=== PATIENT | male | born 1995 | race Caucasian/White ===

== ENCOUNTER 2016-12-13 15:07 | Inpatient (IN) | payer OTHER ==
[~2016-12-13] VITALS: Ht 188 cm; Wt 83.5 kg
[2016-12-13] MEDS ORDERED: THIAMINE HCL 200 MG/2 ML VIAL IM ONE (15:45)
[2016-12-13] MEDS ORDERED: MAG HYDROX/AL HYDROX/SIMETH 30 ML LIQUID UDC PO PRN (15:45)
[2016-12-13] MEDS ORDERED: METHOCARBAMOL 750 MG TABLET PO PRN (15:45)
[2016-12-13] MEDS ORDERED: ACETAMINOPHEN 325 MG TABLET PO PRN (15:45)
[2016-12-13] MEDS ORDERED: HYDROXYZINE PAMOATE 25 MG CAPSULE PO PRN (15:45)
[2016-12-13] MEDS ORDERED: ONDANSETRON 4 MG/2 ML VIAL IM PRN (15:45)
[2016-12-13] MEDS ORDERED: DICYCLOMINE HCL 20 MG TABLET PO PRN (15:45)
[2016-12-13] MEDS ORDERED: MIRALAX 17 GM POWD.PACK PO PRN (15:45)
[2016-12-13] MEDS ORDERED: LOPERAMIDE HCL 2 MG CAPSULE PO PRN ×2 (15:45)
[2016-12-13] MEDS ORDERED: CLONIDINE HCL 0.1 MG TABLET PO PRN (15:45)
[2016-12-13] MEDS ORDERED: LORAZEPAM 2 MG/1 ML VIAL IM PRN (15:45)
[2016-12-13] MEDS ORDERED: BUPRENORPHINE HCL 2 MG TAB.SUBL SL PRN (15:45)
[2016-12-13] MEDS ORDERED: IBUPROFEN 600 MG TABLET PO PRN (15:45)
[2016-12-13] MEDS ORDERED: LORAZEPAM 1 MG TABLET PO PRN ×2 (15:45)
[2016-12-13 16:00] VITALS: BP 141/87
[2016-12-13] MEDS ORDERED: NAPR220C15 PO (16:14)
[2016-12-13 17:01] LABS: BASOPHILS # (AUTO) 0.1 K/uL (0.0-8.0); BASOPHILS % (AUTO) 0.5 % (0.0-2.0); EOSINOPHILS # (AUTO) 0.1 K/uL (0.0-0.7); EOSINOPHILS % (AUTO) 0.9 % (0.0-7.0); HEMATOCRIT 45.8 % (36.7-47.1); HEMOGLOBIN 15.8 g/dL (12.5-16.3); LYMPHOCYTES # (AUTO) 2.9 K/uL (20.0-40.0); LYMPHOCYTES % (AUTO) 24.8 % (20.5-51.5); MEAN CORPUSCULAR HEMOGLOBIN 29.5 uug (23.8-33.4); MEAN CORPUSCULAR HGB CONC 34 g/dL (32.5-36.3); MEAN CORPUSCULAR VOLUME 85.6 fL (73.0-96.2); NEUTROPHILS # (AUTO) 7.4 K/uL (1.8-8.9); NEUTROPHILS % (AUTO) 64.8 % (38.5-71.5); PLATELET COUNT (AUTO) 259 K/uL (152-348); RED BLOOD CELL COUNT(AUTO) 5.35 MIL/uL (4.06-5.63); RED CELL DISTRIBUTION WIDTH 12.7 % (12.1-16.2); WHITE BLOOD COUNT (AUTO) 11.5 K/uL (3.6-10.2)
[2016-12-13 17:09] LABS: ETHANOL < 3 MG/DL (0-0)
[2016-12-13 17:11] LABS: ALANINE AMINOTRANSFERASE 23 U/L (16-63); ALBUMIN 4.2 g/dL (3.4-5.0); ALKALINE PHOSPHATASE 64 U/L (50-136); AMYLASE 47 U/L (25-115); ASPARTATE AMINOTRANSFERASE 15 U/L (15-37); BILIRUBIN,TOTAL 0.4 mg/dL (0.2-1.0); CALCIUM 8.8 mg/dL (8.5-10.1); CARBON DIOXIDE 27 mmol/L (21-32); CHLORIDE 107 mmol/L (98-107); GFR 93 mL/min (>60); LIPASE 84 U/L (73-393); POTASSIUM 3.6 mmol/L (3.5-5.1); SODIUM SERUM 145 mmol/L (136-145); TOTAL PROTEIN, SERUM 7.7 g/dL (6.4-8.2); UREA NITROGEN, BLOOD 13 mg/dL (7-18)
[2016-12-13 17:17] LABS: GLUCOSE 114 mg/dL (74-106)
[2016-12-13 17:22] LABS: THYROID STIMULATING HORMONE 0.875 mIU/mL (0.358-3.740)
[2016-12-13] MEDS: ONDANSETRON ODT 4 MG TAB.RAPDIS SL PRN (17:52)
[2016-12-13 17:58] LABS: HIV-1 p24 ANTIGEN NON REACTIVE (NONREACTIVE); HIV-1/2 ANTIBODY NON REACTIVE (NONREACTIVE)
[2016-12-13 18:39] LABS: *AMPHETAMINE, URINE POSITIVE (NEGATIVE); *BARBITURATE, URINE NEGATIVE (NEGATIVE); *CANNABINOID, URINE NEGATIVE (NEGATIVE); *COCCAINE, URINE NEGATIVE (NEGATIVE); *OPIATE, URINE POSITIVE (NEGATIVE); *PHENCYCLIDINE SCREEN,URINE NEGATIVE (NEGATIVE)
[2016-12-13 20:00] VITALS: BP 121/77
[2016-12-13] MEDS ORDERED: PROCHLORPERAZINE EDISYLATE 10 MG/2 ML VIAL IM ONE (20:30)
[2016-12-13] MEDS ORDERED: DICYCLOMINE HCL 20 MG/2 ML AMPUL IM ONE (20:30)
[2016-12-14] VITALS: BP 116/74
[2016-12-14 04:00] VITALS: BP 118/61
[2016-12-14 08:00] VITALS: BP 117/67
[2016-12-14] MEDS: THIAMINE HCL 100 MG TABLET PO SCH (08:50)
[2016-12-14] MEDS: MULTIVITAMINS,THERAPEUTIC TABLET PO SCH (08:50)
[2016-12-14] MEDS: BUPRENORPHINE HCL 2 MG TAB.SUBL SL SCH ×3 (08:50→20:31)
[2016-12-14] MEDS: FOLIC ACID 1 MG TABLET PO SCH (08:50)
[2016-12-14] MEDS ORDERED: MULTIVITAMINS,THERAPEUTIC TABLET PO SCH (09:00)
[2016-12-14] MEDS ORDERED: TUBERCULIN,PURIF.PROT.DERIV. 5 TU/0.1 ML TEST ID ONE (09:00)
[2016-12-14 12:00] VITALS: BP 125/73
[2016-12-14 16:00] VITALS: BP 119/64
[2016-12-14 20:00] VITALS: BP 96/64
[2016-12-15] VITALS: BP 120/69
[2016-12-15] MEDS: diphenhydrAMINE 50 MG CAPSULE PO PRN (00:16)
[2016-12-15 08:10] VITALS: BP 117/52
[2016-12-15 08:27] LABS: BASOPHILS % (AUTO) 0.5 % (0.0-2.0); EOSINOPHILS # (AUTO) 0.3 K/uL (0.0-0.7); EOSINOPHILS % (AUTO) 4.1 % (0.0-7.0); HEMATOCRIT 44.8 % (36.7-47.1); HEMOGLOBIN 15.2 g/dL (12.5-16.3); LYMPHOCYTES # (AUTO) 3.4 K/uL (20.0-40.0); LYMPHOCYTES % (AUTO) 44.8 % (20.5-51.5); MEAN CORPUSCULAR HEMOGLOBIN 29.2 uug (23.8-33.4); MEAN CORPUSCULAR HGB CONC 34 g/dL (32.5-36.3); MEAN CORPUSCULAR VOLUME 85.8 fL (73.0-96.2); MONOCYTES # (AUTO) 0.7 K/uL (2.0-10.0); MONOCYTES % (AUTO) 9.8 % (0.0-11.0); NEUTROPHILS # (AUTO) 3.1 K/uL (1.8-8.9); NEUTROPHILS % (AUTO) 40.8 % (38.5-71.5); PLATELET COUNT (AUTO) 212 K/uL (152-348); RED BLOOD CELL COUNT(AUTO) 5.22 MIL/uL (4.06-5.63); RED CELL DISTRIBUTION WIDTH 12.9 % (12.1-16.2)
[2016-12-15 08:28] LABS: WHITE BLOOD COUNT (AUTO) 7.5 K/uL (3.6-10.2)
[2016-12-15] MEDS: MULTIVITAMINS,THERAPEUTIC TABLET PO SCH (08:32)
[2016-12-15] MEDS: THIAMINE HCL 100 MG TABLET PO SCH (08:33)
[2016-12-15] MEDS: FOLIC ACID 1 MG TABLET PO SCH (08:33)
[2016-12-15] MEDS ORDERED: BUPRENORPHINE HCL 2 MG TAB.SUBL SL SCH (09:00)
[2016-12-15 10:10] LABS: CALCIUM 8.6 mg/dL (8.5-10.1); CREATININE 0.9 mg/dL (0.6-1.3); MAGNESIUM 1.8 mg/dL (1.8-2.4); POTASSIUM 4.6 mmol/L (3.5-5.1)
[2016-12-15 12:34] VITALS: BP 117/59
[2016-12-15] MEDS: BUPRENORPHINE HCL 2 MG TAB.SUBL SL SCH ×2 (14:03→20:49)
[2016-12-15 17:34] VITALS: BP 121/58
[2016-12-15 20:00] VITALS: BP 136/78
[2016-12-15] MEDS ORDERED: LORAZEPAM 1 MG TABLET ONE (20:53)
[2016-12-15] MEDS ORDERED: LORAZEPAM 1 MG TABLET PO SCH (21:00)
[2016-12-15] MEDS: MAGNESIUM HYDROXIDE 30 ML LIQUID UDC PO PRN (21:27)
[2016-12-16] VITALS: BP 120/63
[2016-12-16 04:00] VITALS: BP 124/68
[2016-12-16 08:27] VITALS: BP 119/64
[2016-12-16] MEDS: THIAMINE HCL 100 MG TABLET PO SCH (08:55)
[2016-12-16] MEDS: LORAZEPAM 1 MG TABLET PO SCH ×3 (08:55→20:16)
[2016-12-16] MEDS: BUPRENORPHINE HCL 2 MG TAB.SUBL SL SCH ×3 (08:55→20:16)
[2016-12-16] MEDS: MULTIVITAMINS,THERAPEUTIC TABLET PO SCH (08:55)
[2016-12-16] MEDS: FOLIC ACID 1 MG TABLET PO SCH (08:56)
[2016-12-16] MEDS: MAGNESIUM HYDROXIDE 30 ML LIQUID UDC PO PRN (09:00)
[2016-12-16 12:00] VITALS: BP 121/67
[2016-12-16] MEDS: DOCUSATE SODIUM 250 MG CAPSULE PO SCH (15:18)
[2016-12-16 17:45] VITALS: BP 135/68
[2016-12-16 20:00] VITALS: BP 126/76
[2016-12-16] MEDS ORDERED: BISACODYL 10 MG SUPP.RECT RC PRN (21:15)
[2016-12-16] MEDS ORDERED: BISACODYL 5 MG TABLET.DR PO PRN (21:15)
[2016-12-16] MEDS ORDERED: MAGNESIUM CITRATE 296 ML BOTTLE PO PRN (21:15)
[2016-12-17] VITALS: BP 120/82
[2016-12-17] MEDS: diphenhydrAMINE 50 MG CAPSULE PO PRN (01:11)
[2016-12-17 05:06] LABS: HCV AB 0.1 s/co ratio (0.0-0.9); HEPATITIS B CORE AB, IgM Negative (Negative); HEPATITIS B SURFACE AG Negative (Negative)
[2016-12-17 08:00] VITALS: BP 150/84
[2016-12-17] MEDS: MULTIVITAMINS,THERAPEUTIC TABLET PO SCH (08:43)
[2016-12-17] MEDS: THIAMINE HCL 100 MG TABLET PO SCH (08:43)
[2016-12-17] MEDS: FOLIC ACID 1 MG TABLET PO SCH (08:43)
[2016-12-17] MEDS: DOCUSATE SODIUM 250 MG CAPSULE PO SCH (08:43)
[2016-12-17] MEDS ORDERED: BUPRENORPHINE HCL 2 MG TAB.SUBL SL SCH (09:00)
[2016-12-17] MEDS ORDERED: LORAZEPAM 1 MG TABLET PO SCH (09:00)
[2016-12-17 12:00] VITALS: BP 114/60
[2016-12-17] MEDS ORDERED: FLEET ENEMA 133 ML BOTTLE RC PRN (15:30)
[2016-12-17 16:00] VITALS: BP 120/58
[2016-12-17] MEDS: LORAZEPAM 1 MG TABLET PO SCH ×2 (17:12→21:15)
[2016-12-17] MEDS: BUPRENORPHINE HCL 2 MG TAB.SUBL SL SCH ×2 (17:12→21:15)
[2016-12-17 20:00] VITALS: BP 140/78
[2016-12-17] MEDS: DICYCLOMINE HCL 20 MG TABLET PO SCH (21:15)
[2016-12-18] VITALS: BP 96/54
[2016-12-18 08:00] VITALS: BP 128/71
[2016-12-18] MEDS: FOLIC ACID 1 MG TABLET PO SCH (08:35)
[2016-12-18] MEDS: MULTIVITAMINS,THERAPEUTIC TABLET PO SCH (08:35)
[2016-12-18] MEDS: LORAZEPAM 1 MG TABLET PO SCH ×2 (08:36→20:45)
[2016-12-18] MEDS: DOCUSATE SODIUM 250 MG CAPSULE PO SCH (08:36)
[2016-12-18] MEDS: DICYCLOMINE HCL 20 MG TABLET PO SCH ×3 (08:36→20:44)
[2016-12-18] MEDS: THIAMINE HCL 100 MG TABLET PO SCH (08:36)
[2016-12-18] MEDS ORDERED: BUPRENORPHINE HCL 2 MG TAB.SUBL SL SCH (09:00)
[2016-12-18 12:00] VITALS: BP 134/83
[2016-12-18] MEDS: BACLOFEN 10 MG TABLET PO SCH ×2 (15:34→20:45)
[2016-12-18] MEDS: BUPRENORPHINE HCL 2 MG TAB.SUBL SL SCH ×2 (15:35→20:44)
[2016-12-18 16:00] VITALS: BP 125/64
[2016-12-18] MEDS: ONDANSETRON ODT 4 MG TAB.RAPDIS SL PRN (17:22)
[2016-12-18 20:00] VITALS: BP 127/79
[2016-12-19] VITALS: BP 122/82
[2016-12-19 08:00] VITALS: BP 122/62
[2016-12-19] MEDS: DOCUSATE SODIUM 250 MG CAPSULE PO SCH (08:56)
[2016-12-19] MEDS: DICYCLOMINE HCL 20 MG TABLET PO SCH ×3 (08:56→20:14)
[2016-12-19] MEDS: MULTIVITAMINS,THERAPEUTIC TABLET PO SCH (08:56)
[2016-12-19] MEDS: BACLOFEN 10 MG TABLET PO SCH ×3 (08:56→20:14)
[2016-12-19] MEDS: FOLIC ACID 1 MG TABLET PO SCH (08:57)
[2016-12-19] MEDS: THIAMINE HCL 100 MG TABLET PO SCH (08:57)
[2016-12-19] MEDS ORDERED: BUPRENORPHINE HCL 2 MG TAB.SUBL SL SCH (09:00)
[2016-12-19] MEDS ORDERED: LORAZEPAM 1 MG TABLET PO SCH (09:00)
[2016-12-19 12:00] VITALS: BP 124/63
[2016-12-19 16:00] VITALS: BP 119/79
[2016-12-19 17:04] LABS: *AMPHETAMINE, URINE NEGATIVE (NEGATIVE); *BARBITURATE, URINE NEGATIVE (NEGATIVE); *CANNABINOID, URINE NEGATIVE (NEGATIVE); *COCCAINE, URINE NEGATIVE (NEGATIVE); *OPIATE, URINE NEGATIVE (NEGATIVE); *PHENCYCLIDINE SCREEN,URINE NEGATIVE (NEGATIVE)
[2016-12-19 20:00] VITALS: BP 131/61
[2016-12-19] MEDS: diphenhydrAMINE 50 MG CAPSULE PO PRN (20:14)
[2016-12-20] VITALS: BP 120/71
[2016-12-20] MEDS ORDERED: Ibuprofen PO (00:09)
[2016-12-20] MEDS ORDERED: DIPH50CA37 PO (00:09)
[2016-12-20] MEDS ORDERED: DICY20TA28 PO (00:09)
[2016-12-20] MEDS ORDERED: Baclofen PO (00:09)
[2016-12-20] MEDS ORDERED: Docusate Sodium PO (00:09)
[2016-12-20] MEDS ORDERED: HYDR-3895 PO (00:09)
[2016-12-20 04:00] VITALS: BP 110/63
[2016-12-20 08:00] VITALS: BP 115/64
[2016-12-20] MEDS: DICYCLOMINE HCL 20 MG TABLET PO SCH (08:54)
[2016-12-20] MEDS: DOCUSATE SODIUM 250 MG CAPSULE PO SCH (08:54)
[2016-12-20] MEDS: THIAMINE HCL 100 MG TABLET PO SCH (08:54)
[2016-12-20] MEDS: BACLOFEN 10 MG TABLET PO SCH (08:55)
[2016-12-20] MEDS: FOLIC ACID 1 MG TABLET PO SCH (08:55)
[2016-12-20] MEDS: MULTIVITAMINS,THERAPEUTIC TABLET PO SCH (08:55)
[2016-12-20 13:25] LABS: *AMPHETAMINE Positive (.); *CODEINE Positive (.); *HYDROMORPHONE Negative (Cutoff=300); *METHAMPHETAMINE Positive (.); *OPIATES Positive ng/mL (Cutoff=300)
== END 2016-12-20 10:04 | disposition other institution (70) | DRG 895 ==
LOC: SRC 15:07
PROVIDERS: ADMIT Internal Medicine; ATTEND Internal Medicine
PROC: HZ2ZZZZ Detoxification Services for Substance Abuse Treatment (ICD-10-PCS; principal; 2016-12-13)
PROC: HZ31ZZZ Individual Counseling for Substance Abuse Treatment, Behavioral (ICD-10-PCS; 2016-12-14)
PROC: HZ41ZZZ Group Counseling for Substance Abuse Treatment, Behavioral (ICD-10-PCS; 2016-12-16)
DX: F10.20 Alcohol dependence, uncomplicated (principal); F11.23 Opioid dependence with withdrawal; Y90.9 Presence of alcohol in blood, level not specified; F41.1 Generalized anxiety disorder; Z72.0 Tobacco use; Z81.8 Family history of other mental and behavioral disorders; Z82.49 Family history of ischemic heart disease and other diseases of the circulatory system; Z59.0 Homelessness; F40.01 Agoraphobia with panic disorder; F90.9 Attention-deficit hyperactivity disorder, unspecified type; F15.10 Other stimulant abuse, uncomplicated; D72.823 Leukemoid reaction; K59.03 Drug induced constipation
CPT/HCPCS: 36415; 70030-TC; 80307; 80324; 80361; 83690; 83735; 84443; 85025; 86580; 86592; 86705; 86803; 87340; 87806; G6040-TC; J0500; J0780; Q0162; Q0163

== ENCOUNTER 2018-04-16 13:07 | Inpatient (IN) | payer OTHER ==
[~2018-04-16] VITALS: Ht 188 cm; Wt 88.9 kg
[~2018-04-16 13:07] MED LIST: Baclofen PO; DICY20TA28 PO; DIPH50CA37 PO; Docusate Sodium PO; HYDR-3895 PO; Ibuprofen PO; NAPR220C15 PO
--- NOTE | 2018-04-16 15:48 | NUR ---
pre-assessment note: pt was seen in intake office moderately intoxicated. pt verbalizes he was using heroin before, but is now here for DXM and Etoh. pt is the main source of information, at this time pt is alert, oriented, explained protocols and procedures and pt verbalized understanding.
[2018-04-16] MEDS ORDERED: LOPERAMIDE HCL 2 MG CAPSULE PO PRN ×2 (16:30)
[2018-04-16] MEDS ORDERED: diphenhydrAMINE 50 MG CAPSULE PO PRN ×2 (16:30→22:30)
[2018-04-16] MEDS ORDERED: DICYCLOMINE HCL 20 MG TABLET PO PRN ×2 (16:30→22:30)
[2018-04-16] MEDS ORDERED: CLONIDINE HCL 0.1 MG TABLET PO PRN (16:30)
[2018-04-16] MEDS ORDERED: LORAZEPAM 2 MG/1 ML VIAL IM PRN (16:30)
[2018-04-16] MEDS ORDERED: MIRALAX 17 GM POWD.PACK PO PRN (16:30)
[2018-04-16] MEDS ORDERED: ONDANSETRON 4 MG/2 ML VIAL IM PRN (16:30)
[2018-04-16] MEDS ORDERED: LORAZEPAM 1 MG TABLET PO PRN (16:30)
[2018-04-16] MEDS ORDERED: MAGNESIUM HYDROXIDE 30 ML LIQUID UDC PO PRN (16:30)
[2018-04-16] MEDS ORDERED: THIAMINE HCL 200 MG/2 ML VIAL IM ONE (16:30)
[2018-04-16 16:35] LABS: BASOPHILS % (AUTO) 0.5 % (0.0-2.0); EOSINOPHILS % (AUTO) 0.3 % (0.0-7.0); HEMATOCRIT 51.6 % (36.7-47.1); HEMOGLOBIN 17.5 g/dL (12.5-16.3); LYMPHOCYTES # (AUTO) 2.7 K/uL (20.0-40.0); LYMPHOCYTES % (AUTO) 30.1 % (20.5-51.5); MEAN CORPUSCULAR HEMOGLOBIN 29.9 uug (23.8-33.4); MEAN CORPUSCULAR HGB CONC 34 g/dL (32.5-36.3); MEAN CORPUSCULAR VOLUME 88.5 fL (73.0-96.2); MONOCYTES # (AUTO) 0.8 K/uL (2.0-10.0); MONOCYTES % (AUTO) 9.4 % (0.0-11.0); NEUTROPHILS # (AUTO) 5.3 K/uL (1.8-8.9); NEUTROPHILS % (AUTO) 59.7 % (38.5-71.5); PLATELET COUNT (AUTO) 327 K/uL (152-348); RED BLOOD CELL COUNT(AUTO) 5.83 MIL/uL (4.06-5.63); WHITE BLOOD COUNT (AUTO) 8.9 K/uL (3.6-10.2)
[2018-04-16 16:39] LABS: ETHANOL < 3 MG/DL (0-0)
[2018-04-16 16:42] LABS: ALANINE AMINOTRANSFERASE 34 U/L (16-63); ALKALINE PHOSPHATASE 75 U/L (50-136); AMYLASE 51 U/L (25-115); ASPARTATE AMINOTRANSFERASE 18 U/L (15-37); BILIRUBIN,TOTAL 0.6 mg/dL (0.2-1.0); CARBON DIOXIDE 23 mmol/L (21-32); CHLORIDE 104 mmol/L (98-107); CREATININE 1.1 mg/dL (0.6-1.3); GLUCOSE 145 mg/dL (74-106); LIPASE 112 U/L (73-393); MAGNESIUM 2.2 mg/dL (1.8-2.4); POTASSIUM 3.2 mmol/L (3.5-5.1); TOTAL PROTEIN, SERUM 8.6 g/dL (6.4-8.2); UREA NITROGEN, BLOOD 9 mg/dL (7-18)
[2018-04-16] MEDS ORDERED: POTASSIUM CHLORIDE 20 MEQ TAB.PRT.SR PO ONE (17:00)
[2018-04-16] MEDS: ONDANSETRON ODT 4 MG TAB.RAPDIS SL PRN (17:40)
--- NOTE | 2018-04-16 17:40 | NUR ---
LAB K+=3.2. aware with new order for Kdur 40 mEq po x 1 dose noted and carried out.
--- NOTE | 2018-04-16 17:46 | NUR ---
PRN ZOFRAN Complaints of nausea with no vomit episode. Zofran odt prn per MD order given and tolerated well.
--- NOTE | 2018-04-16 18:00 | NUR ---
ADMISSION Pt 27 y/o male came from home admitted for etoh, dxm , and heroin withdrawal and methamphetamine. Appears disheveled. Dirty shirt. Dirt under fingernails of both hands. Tapping foot during assessment. Restless, not able to sit still. Pressured speech. Poor eye contact. Not intoxicated. Alert and oriented to name, place, and time. Perrla. Skin warm and moist to touch. Lung sounds clear bilaterally. Bilateral hand tremors. Complaints of nausea and perspiration. T=98.0 P=80 R= 16 O2=97% XY=060/84. Pt states he normally experiences, shakes, nausea, vomit, perspiration, and headaches, when not drinking alcohol. States has attempted multiple times at sobriety, but was not successful at maintaining sobriety after treatment. Pt states he drinks alcohol because it takes away anxiety, lets him be more sociable, and more confident of himself. Pt states he has social anxiety. Has been drinking alcohol for 11 years and it has been difficult to stop since when he first started drinking alcohol. States the drinking has damaged his relationship with friends, as well as got him fired from multiple jobs ( showing up late and at times showing up intoxicated). States the reason for his multiple failed attempts at sobriety was my own self will. Im wasnt ready at the time. States he is unhappy with his life because of the alcohol. Pt said, Im sick of this lifestyle and Ill do whatever it takes to maintain sobriety. Pt states his longest period of sobriety was 6 months from August 2016-January2017. PCP is Dr. Andujar. Pt denies any SI/HI. Also denies ever being on a 5150. Pt states has experienced a blackout a few days ago. Stated was drinking 1500mL of red wine and 325mL of vodka. Only remembers drinking at home and ending up in room. Pt stated that his girlfriend and him had a big argument, but pt does not recall any of it. Depression(unsure of dx date) and is take paxil 40mg po but stopped taking the medication 2 days ago. Anxiety (2009) Substance hx: ETOH ( red wine). States drinks 1500mL daily for 3 months. Last drink was on 750 mL on 04/16/18 @ 0700. Has been drinking for a total of 11 years. Cough syrup DXM. Either liquid or pills 1gm 2 days a week. Last time pt took was on 04/15/18 1gm. Has been using for 8 years. Heroin smoke 1-2 gm binge once every few weeks. Last used 1-2gm on 04/13/18. Hast been using for 6 years. Methamphetamine smoke 1-2 gm binge once every few weeks. Last used 1-2gm on 03/16/18. Has been using for 4 years. Treatment hx: [facility] from November 2017- December 2017. Was able to maintain sobriety for 2 weeks after DC. [facility] from June 2017-September 2017. Was able to maintain sobriety for 2 weeks after DC. [facility] from November 2016 for 1 month and was able to maintain sobriety for 6 months. Addendum: 04/16/18 at 1916 by ALVARADO BARRERA RN additional Initial ciwa=8 Addendum: 04/17/18 at 0740 by ALVARADO BARRERA RN additional information DXM last used in the morning of 04/15/18 heroin last used in the afternoon on 04/13/18 methamphetamine last used in the morning on 04/16/18 Addendum: 04/17/18 at 1015 by ALVARADO BARRERA RN correction Pt states his longest period of sobriety was 6 months from May 2016-November 2016. Pt also denies use of PCP.
--- NOTE | 2018-04-16 18:46 | NUR ---
PRN ZOFRAN EVAL Pt denies any nausea at this time.
[2018-04-16 19:17] LABS: *AMPHETAMINE, URINE NEGATIVE (NEGATIVE); *BARBITURATE, URINE NEGATIVE (NEGATIVE); *CANNABINOID, URINE NEGATIVE (NEGATIVE); *COCCAINE, URINE NEGATIVE (NEGATIVE); *OPIATE, URINE POSITIVE (NEGATIVE); *PHENCYCLIDINE SCREEN,URINE POSITIVE (NEGATIVE)
[2018-04-16] MEDS: LORAZEPAM 1 MG TABLET PO PRN (19:25)
--- NOTE | 2018-04-16 19:26 | NUR ---
PRN ATIVAN ciwa=8. Nausea. Bilateral hand tremors. Skin moist to touch. Anxious and restless. Irritable. Pressured speech. Ativan 1mg po prn per MD order given and tolerated well.
--- NOTE | 2018-04-16 19:27 | NUR ---
Start of shift note Received report from day shift nurse. Pt is a 23 yo male, A+Ox4, presenting to [facility] for medically supervised ETOH/Opiate withdrawal. Pt was also using Methamphetamine. Pt noted to be restless, agitated, and anxious. Pt has HX anxiety and depression which will be monitored during shift. Pt is on PRN Ativan until further evaluation from MD, tolerated well. Respirations even and unlabored. Will continue to monitor.
[2018-04-16 20:25] VITALS: BP 134/78
--- NOTE | 2018-04-16 20:25 | NUR ---
PRN Ativan 1mg Reassessment and CIWA Assessment Medication effective. Pt expresses reduction of anxiety. No s/s of ASE noted at this time. CIWA: 6. Pt noted with fine tremors, sweat on brow, anxiety, and agitation. Respirations even and unlabored. Will continue to monitor.
[2018-04-16] MEDS ORDERED: DOCUSATE SODIUM 250 MG CAPSULE PO PRN (22:30)
[2018-04-16] MEDS ORDERED: HYDROXYZINE PAMOATE 25 MG CAPSULE PO PRN (22:30)
--- NOTE | 2018-04-17 00:57 | NUR ---
V/S refused and CIWA assessment deferred for sleep. Respirations even and unlabored. Will continue to monitor.
--- NOTE | 2018-04-17 04:48 | NUR ---
V/S refused and CIWA assessment deferred for sleep. Respirations even and unlabored. Will continue to monitor.
--- NOTE | 2018-04-17 07:00 | NUR ---
End of shift note Pt was continuously noted with anxiety and agitation. Pt remained in room for entire shift. Pt remained cooperative and compliant with all aspects of treatment. Pt was not given any PRN medications during shift. Pt is on PRN medications until further review from MD. Pt slept for a total of 10 HRS. Last CIWA: 6 @2024. Respirations even and unlabored. Will endorse to day shift nurse.
--- NOTE | 2018-04-17 07:30 | NUR ---
START OF SHIFT Pt 23 y/o male admitted for etoh, DXM, and heroin withdrawal and methamphetamine. Received in room on bed awake watching television. Alert and oriented to name, place, and time. Perrla. Skin warm and moist to touch. Respirations even and unlabored. Bilateral hand tremors. Appears disheveled and unkempt. Empty drink bottles scattered throughout the room. Anxious and restless. Pressured speech. Irritable. Generalized discomfort. Encouraged to maintain hygiene. It was reported that pt slept for 10 hours last night. Pt is on prn ativan. Last ciwa=6 @2029 last night. Bed on lowest position with side rails x2 up for safety. Call light within reach.
[2018-04-17] MEDS ORDERED: GABA600T2 PO (07:58)
[2018-04-17] MEDS ORDERED: PARO25TA16 PO (07:59)
[2018-04-17 08:00] VITALS: BP 145/89
--- NOTE | 2018-04-17 08:30 | NUR ---
CIWA ASSESSMENT ciwa=10. Restless and anxious. Irritable. Pressured speech. Nausea. Headache 01/01. Fidgety. Intermittent perspiration. Generalized discomfort. States," I just feel really anxious right now.".
[2018-04-17] MEDS: FOLIC ACID 1 MG TABLET PO SCH (08:33)
[2018-04-17] MEDS: MULTIVITAMINS,THERAPEUTIC TABLET PO SCH (08:33)
[2018-04-17] MEDS: THIAMINE HCL 100 MG TABLET PO SCH (08:33)
[2018-04-17] MEDS: ONDANSETRON ODT 4 MG TAB.RAPDIS SL PRN (08:34)
[2018-04-17] MEDS: LORAZEPAM 1 MG TABLET PO PRN (08:34)
[2018-04-17] MEDS: IBUPROFEN 600 MG TABLET PO PRN (08:34)
--- NOTE | 2018-04-17 08:42 | NUR ---
PRN ATIVAN ZOFRAN IBUPROFEN ciwa=10. Restless and anxious. Fidgety. Nausea. Bilateral hand tremors. Headache 6/10. Generalized discomfort. Ativan 1mg po prn per MD order given and tolerated well. Zofran odt prn per MD order and ibuprofen po prn per MD order given.
[2018-04-17] MEDS ORDERED: TUBERCULIN,PURIF.PROT.DERIV. 5 TU/0.1 ML TEST ID ONE (09:00)
--- NOTE | 2018-04-17 09:42 | NUR ---
PRN ATIVAN ZOFRAN IBUPROFEN EVAL ciwa=8. Bilateral hand tremors. Anxious and restless. Irritable. Complaints of perspiration. Pt denies any nausea. Pt states headache 3/10.
[2018-04-17] MEDS ORDERED: 5 DAY TAPER OF LORAZEPAM -SERENITY PROTOCOL PO PRN (10:30)
[2018-04-17 12:00] VITALS: BP 143/63
--- NOTE | 2018-04-17 12:00 | NUR ---
CIWA ASSESSMENT ciwa=10. Bilateral hand tremors noted. Anxious and restless. Not able to lay still in bed. States, " I feel very anxious.". Pressured speech. Generalized discomfort. Complaints of headaches. Nausea.
[2018-04-17] MEDS: LORAZEPAM 1 MG TABLET PO SCH ×3 (12:11→20:31)
[2018-04-17 16:00] VITALS: BP 112/73
--- NOTE | 2018-04-17 16:00 | NUR ---
CIWA ASSESSMENT ciwa=10. Laying in bed. Fatigued. Pt states, " I feel anxious". Bilateral hand tremors noted. Skin moist to touch. Fidgety. Irritable. Anxious. Intermittent nausea. Low motivation for self care. Malodorous. Encouraged to maintain hygiene.
[2018-04-17] MEDS: PAROXETINE HCL 20 MG TABLET PO SCH (16:12)
[2018-04-17 17:14] LABS: BASOPHILS # (AUTO) 0.1 K/uL (0.0-8.0); BASOPHILS % (AUTO) 0.6 % (0.0-2.0); EOSINOPHILS # (AUTO) 0.2 K/uL (0.0-0.7); EOSINOPHILS % (AUTO) 2.1 % (0.0-7.0); HEMATOCRIT 45.5 % (36.7-47.1); HEMOGLOBIN 15.8 g/dL (12.5-16.3); LYMPHOCYTES % (AUTO) 37.3 % (20.5-51.5); MEAN CORPUSCULAR HEMOGLOBIN 30.7 uug (23.8-33.4); MEAN CORPUSCULAR HGB CONC 35 g/dL (32.5-36.3); MEAN CORPUSCULAR VOLUME 88.5 fL (73.0-96.2); MONOCYTES # (AUTO) 0.9 K/uL (2.0-10.0); MONOCYTES % (AUTO) 11.9 % (0.0-11.0); NEUTROPHILS # (AUTO) 3.8 K/uL (1.8-8.9); NEUTROPHILS % (AUTO) 48.1 % (38.5-71.5); PLATELET COUNT (AUTO) 271 K/uL (152-348); RED BLOOD CELL COUNT(AUTO) 5.14 MIL/uL (4.06-5.63)
[2018-04-17 17:40] LABS: BILIRUBIN,TOTAL 0.2 mg/dL (0.2-1.0); CREATININE 1.2 mg/dL (0.6-1.3); MAGNESIUM 1.9 mg/dL (1.8-2.4); POTASSIUM 4.1 mmol/L (3.5-5.1)
--- NOTE | 2018-04-17 18:44 | NUR ---
END OF SHIFT Pt 23 y/o male admitted for etoh, DXM, and heroin withdrawal and methamphetamine. Alert and oriented to name, place, and time. Perrla. Skin warm and moist to touch. Respirations even and unlabored. Bilateral hand tremors noted. Disheveled and unkempt. Malodorous. Empty drink bottles scattered throughout the room. Dirt under finger nails noted. Anxious and restless. Intermittent perspirations. Generalized discomfort. Pt states, " I feel anxious" this afternoon. Encouraged to maintain hygiene. Low motivation for self care. Isolative to room with no peer interaction. Did not attend group activity. Last ciwa=10@1600. Pt is on a 3 day ativan taper and is on day 1. Pt was given zofran odt prn per MD order for nausea this morning. Pt also received ibuprofen po prn per MD order for a headache this morning. Bed on lowest position with side rails x2 up for safety. Call light within reach.
--- NOTE | 2018-04-17 19:10 | NUR ---
Start of shift Received report from day shift nurse. Pt is a 23 yo male, A+Ox4, presenting to [facility] for medically supervised ETOH/Opiate withdrawal. Pt noted to be restless, agitated, and anxious. Pt has HX of anxiety and depression which will be monitored during shift. Pt is on 3 day Ativan taper, tolerated well. Respirations even and unlabored. Will continue to monitor.
--- NOTE | 2018-04-17 20:10 | NUR ---
CIWA Assessment CIWA: 10. Pt noted with fine tremors, sweat on brow, anxiety, agitation, and mild headache. Respirations even and unlabored. Will continue to monitor.
[2018-04-17 20:16] VITALS: BP 141/77
--- NOTE | 2018-04-18 00:55 | NUR ---
V/S refused and CIWA assessment deferred for sleep. Respirations even and unlabored. Will continue to monitor.
--- NOTE | 2018-04-18 04:49 | NUR ---
V/S refused and CIWA assessment deferred for sleep. Respirations even and unlabored. Will continue to monitor.
--- NOTE | 2018-04-18 07:00 | NUR ---
End of shift note Pt was continuously noted with restlessness, anxiety, and agitation. Pt remained in room for entire shift. Pt remained cooperative and compliant with all aspects of treatment. Pt was not given any PRN medications during shift. Pt is on 3 day Ativan taper, tolerated well. Pt slept for a total of 10 HRS. Last CIWA: 10 @2017. Respirations even and unlabored. Will endorse to day shift nurse.
--- NOTE | 2018-04-18 07:23 | NUR ---
START OF SHIFT Pt 23 y/o male admitted for etoh, DXM, and heroin withdrawal and methamphetamine. Received in room on bed with eyes closed resting, but easily arousable to name. Alert and oriented to name, place, and time. Perrla. Skin warm and moist to touch. Respirations even and unlabored. Bilateral hand tremors noted. Appears disheveled and malodorous. Anxious and restless. Generalized discomfort. Pressured speech noted. Encouraged to maintain hygiene. It was reported that pt slept for 10 hours last night. Last cwia =10@2000. Pt is on a 3 day ativan taper and is on day 2. Bed on lowest position with side rails x2 up for safety. Call light within reach.
[2018-04-18 08:00] VITALS: BP 148/80
--- NOTE | 2018-04-18 08:00 | NUR ---
CIWA ASSESSMENT ciwa=10. Anxious and restless. Pressured speech noted. Bilateral hand tremors. Complaints of intermittent perspiration. Pt states, " I feel anxious". Generalized discomfort. Intermittent nausea.
[2018-04-18 08:08] LABS: HEPATITIS B SURFACE AG Negative (Negative)
[2018-04-18] MEDS: LORAZEPAM 1 MG TABLET PO SCH ×3 (08:15→20:20)
[2018-04-18] MEDS: THIAMINE HCL 100 MG TABLET PO SCH (08:15)
[2018-04-18] MEDS: FOLIC ACID 1 MG TABLET PO SCH (08:15)
[2018-04-18] MEDS: MULTIVITAMINS,THERAPEUTIC TABLET PO SCH (08:15)
[2018-04-18] MEDS: PAROXETINE HCL 20 MG TABLET PO SCH (08:16)
--- NOTE | 2018-04-18 12:00 | NUR ---
CIWA ASSESSMENT ciwa=10. Bilateral hand tremors. Anxious and restless. Fidgety. Not able to lay still in bed. Irritable. Intermittent nausea and perspiration. Generalized discomfort.
[2018-04-18 12:03] VITALS: BP 142/69
--- NOTE | 2018-04-18 12:24 | NUR ---
Therapist prompted client to attend group therapy.
--- NOTE | 2018-04-18 16:07 | NUR ---
CIWA ASSESSMENT ciwa=10. Bilateral hand tremors. Anxious and restless. Fidgety. Complaints of generalized discomfort. Irritable. Disheveled and unkempt. Pressured speech noted.
[2018-04-18 16:45] VITALS: BP 142/81
--- NOTE | 2018-04-18 17:11 | NUR ---
ENDORSEMENT Endorsed pt to nurse. All information given.
--- NOTE | 2018-04-18 19:02 | NUR ---
End of Shift Note Pt 23 y/o male admitted for ETOH, dx, and heroin withdrawal and methamphetamine. Alert and oriented to name, place, and time. Perrla. Skin warm and moist to touch. Respirations even and unlabored. Appears disheveled and unkempt. Malodorous. Hair uncombed. Anxious and restless. Dirt under fingernails of both hands noted. Bilateral hand tremors noted. Some intermittent nausea. Generalized discomfort. Low motivation for self care. Encouraged shower and to maintain hygiene. Did not attend group activity today. Isolative to room the whole day. Pt is on a 3 day ativan taper and is on day 2. Last ciwa= 10@1600. Bed on lowest position with side rails x2 up for safety. Call light within reach.
--- NOTE | 2018-04-18 19:49 | NUR ---
START OF SHIFT Patient is a 23 y.o male admitted on 04/16/18 for ETOH withdrawal. Received patient from day shift, previous CIWA reported as 10. Patient is currently in bed, eyes closed but responsive to verbal stimuli. VS 132/66, pulse 69, resp 12, SpO2 96% on room air, temp 98.3. Patients room is dark, malodorous and patient covered himself from his neck down with a blanket, patient is disheveled. Patient reports that he did not attend any groups today, patient is isolative. Patient has a flat affect. Patient denies pain at this time but reports feeling sweaty, having tremors, and anxiety. Patient was encouraged to consume adequate amount of fluids. Patient did report that he had a regular BM today x1. Respirations even and non-labored, call light within reach. Safety measures in place. Will continue to monitor.
[2018-04-18 20:00] VITALS: BP 132/66
--- NOTE | 2018-04-18 20:00 | NUR ---
[facility] ASSESSMENT [facility] 14. Nausea reported with no vomiting, tremors present to bilateral arms when extended. Patient complains of feeling sweaty. Patient is anxious and agitated when asked about how he is feeling. Patient has poor eye contact, abruptly ends conversation. Addendum: 04/19/18 at 0017 by SUGEY DE LA PAZ RN Pt declined needing a PRN for nausea.
[2018-04-19] VITALS: BP 133/74
--- NOTE | 2018-04-19 00:16 | NUR ---
CIWA ASSESSMENT CIWA 7. Patient is in bed with his eyes closed, responds to verbal stimuli. Patient skin is clammy to the touch. Pt is agitated, continuously repositions self in bed. Patient has his television set on loud. Patient denies needing anything at this time.
--- NOTE | 2018-04-19 04:00 | NUR ---
0400 CIWA/VS Patient in bed with his eyes closed. CIWA and VS deferred due to patient resting. Will continue to monitor.
--- NOTE | 2018-04-19 07:02 | NUR ---
END OF SHIFT NOTE Patient is a 23 y.o male admitted for ETOH and opiate withdrawal. Patient did not participate in evening activities, patient is socially withdrawn. Patient easily agitated when woken up by staff, poor eye contact and lack of detail in answering questions. Patient had his television set on a loud volume up until 1am. Patient was noted to toss and turn in bed throughout the night during rounds. Pt was informed numerous times to call for nurse if needed. Patient keeps empty/used refreshment bottles in room, room untidy. Patient did not leave room during the shift, continued to lay in bed and remained isolative. Patient needed numerous redirection during VS and CIWA assessment due to patient not cooperating initially. Patient states I just want to sleep. Patient disheveled, unkempt, and room is malodorous (sweat). Patient slept for 10 hours. Resp. are even and non labored. Call light within reach. Patient is on a 3 day Ativan taper. Last CIWA 7. No PRNs administered during this shift. Endorsing to day shift nurse. At 0702 Pt laying in bed with eyes open, watching TV.
--- NOTE | 2018-04-19 07:50 | NUR ---
START OF SHIFT Endorse rcvd from ongoing nurse, client is is room, sound asleep, easy to arouse, RR 16, [id number]. Last CIWA 7 @ 2400. Client had an uneventful night. Client slept 10 hrs. Seizure precautions. Bed in lowest/locked position. Side rails x 2 up/padded. Call light within reach.
[2018-04-19 08:21] VITALS: BP 134/71
[2018-04-19] MEDS: THIAMINE HCL 100 MG TABLET PO SCH (08:31)
[2018-04-19] MEDS: PAROXETINE HCL 20 MG TABLET PO SCH (08:31)
[2018-04-19] MEDS: IBUPROFEN 600 MG TABLET PO PRN (08:31)
[2018-04-19] MEDS: LORAZEPAM 1 MG TABLET PO SCH ×2 (08:31→20:30)
[2018-04-19] MEDS: FOLIC ACID 1 MG TABLET PO SCH (08:31)
[2018-04-19] MEDS: MULTIVITAMINS,THERAPEUTIC TABLET PO SCH (08:31)
--- NOTE | 2018-04-19 08:31 | NUR ---
CIWA 16 Client is in bed, he appears disheveled, odorous, unshaven, dark circles under eyes, he presents with anxiety, agitation, irritability, flushed face, clammy skin, and tremors noted. Client reports nausea, stomach cramps, sweats, chills, insomnia, and difficulty concentrating. Ativan 1mg PO administered. Encourage client to increase ADL as tolerated and to attend group therapy to learn skills to maintain sober. Call light within reach.
--- NOTE | 2018-04-19 08:35 | NUR ---
Zero induration noted on R forearm PPD site.
--- NOTE | 2018-04-19 12:30 | NUR ---
CIWA 14 Client presents with flushed face skin, antsy and fidgety stating he has increased anxiety, stomach cramps, depressive mood, agitation, restlessness, tremors, increased emotional amplitude, diaphoresis, and fatigue. Encouraged client to attend groups and share his feelings. Safety measures in place. Will continue to monitor.
[2018-04-19 12:52] VITALS: BP 139/79
--- NOTE | 2018-04-19 13:47 | NUR ---
Prompted client to attend groups offered twice daily.
--- NOTE | 2018-04-19 16:30 | NUR ---
CIWA 14 Client continues to present with flushed face skin, fidgety, anxiety, stomach cramps, depressive mood, agitation, restlessness, tremors, increased emotional amplitude, diaphoresis, and fatigue. Encouraged client to attend groups and share his feelings. Safety measures in place. Will continue to monitor.
[2018-04-19 17:20] VITALS: BP 122/76
--- NOTE | 2018-04-19 18:52 | NUR ---
START OF SHIFT NOTE: This is report on patient, an 23 year old male, continues ordered 3 day Ativan (today is day #3) , ordered for Alcohol withdrawal. Patient is alert and oriented x4, ambulatory with steady gait, soft clear speech. He appears sad, worried, with poor eye contact, and easily distracted, anxious mood, and flat affect. Encourage to express his feelings, and reassuring provided. The patient noted disheveled, unshaven, with uncombed hair. Throughout the day shift patient presented with moderate withdrawal symptoms such as anxiety, agitation, depression, irritability, nervousness, nasal congestion, nausea, stomach cramps, sweating, flushed face, restlessness, tremors, fatigue, and yawning. The most recent CIWA=14 at 1600. Patient is isolate himself from any activities, per day shift nurse report. Encouraged to attend group activities. Encouraged to intake fluids as tolerated. All needs met. Safety measures: Call light within reach, bed locked in lowest position, padded bed rails up x2. Endorsed by shift nurse. Will continue to monitor closely.
--- NOTE | 2018-04-19 19:14 | NUR ---
END OF SHIFT Endorse client to incoming nurse, client tends to isolate in his room, a/o x 4. Client monitored closely during shift, continues on Ativan taper as ordered. During shift client presented with nausea, anxiety, agitation, poor appetite, stomach cramps, difficulty concentrating, avoidant gaze, and fatigue. Client's last CIWA 14 @ 1600. Adequate PO fluid intake 1500mL, void x 5. Consumes 50-75% of meals. Call light within reach.
--- NOTE | 2018-04-19 20:00 | NUR ---
CIWA ASSESSMENT CIWA=12 at 2000. The patient appears sad, worried, with anxious mood and flat affect. Patient experienced following withdrawal symptoms such as anxiety, agitation, Irritability, nervousness, sweating, tremors, stomach cramps, restlessness, fatigue, and yawning. Ativan PO will be administrated as ordered. Encouraged to intake fluids as tolerated. Safe and calm environment provided. Encouraged to intake fluids as tolerated. All needs met. Safety measures: Call light within reach, bed locked in lowest position, padded bed rails up x2. Will continue to monitor closely.
--- NOTE | 2018-04-20 | NUR ---
VS REFUSED, CIWA DEFERRED VS refused,CIWA deferred at 0000 r/t patient sleeping. Will be to assess while patient is awake. Safe and calm environment provided. All needs met. Safety measures: Call light within reach, bed locked in lowest position, padded bed rails up x2. Will continue to monitor closely.
[2018-04-20 04:00] VITALS: BP 140/84
--- NOTE | 2018-04-20 04:00 | NUR ---
CIWA ASSESSMENT CIWA=11 at 0400. The patient appears worried, anxious mood and flat affect. Patient experienced anxiety, agitation, irritability, nervousness, sweating, tremors, restlessness, and fatigue. Encouraged to intake fluids as tolerated. Safe and calm environment provided. Encouraged to intake fluids as tolerated. All needs met. Safety measures: Call light within reach, bed locked in lowest position, padded bed rails up x2. Will continue to monitor closely.
--- NOTE | 2018-04-20 07:31 | NUR ---
END OF SHIFT NOTE: Presented patient, an 23 year old male, admitted for Alcohol withdrawal, completed ordered 3 day Ativan, which tolerated well. Patient is alert and oriented x4, cooperative, with soft clear speech, verbally appropriate. He is ambulatory with steady gait. Patient appears worried, with poor eye contact. The patient noted disheveled, unshaven, unkempt with uncombed hair. Mood anxious, flat affect. CIWA=12 at 2000. CIWA=11 at 0400. The patient appears worried, anxious mood and flat affect. Patient experienced anxiety, agitation, irritability, nervousness, flushed face, clammy skin, sweating, tremors, restlessness, and fatigue. Encouraged to attend group activities. Encouraged to intake fluids as tolerated. Patient slept for 11 hours, intake 736 ml, output: voided x1. Safe and calm environment provided. All needs met. Safety measures: Call light within reach, bed locked in lowest position, padded bed rails up x2. Endorsed to day shift nurse.
--- NOTE | 2018-04-20 07:40 | NUR ---
START OF SHIFT Received report from caustic cresylate shift superintendent nurse. Pt is in his room requesting to shower. He is a 23 yo male admitted to [facility] on 04/16 for ETOH and Opiate withdrawal with a h/o and meth. His affect is flat and appearance is disheveled. His room is odorous with clothes not put away and empty food wrappers and liquid bottles around the bedside. He states "I've just been sleeping a lot. How soon can I get my meds?". His skin is moist and he reports feeling anxious. 3 day Valium taper ended yesterday. Respirations even and unlabored. Last CIWA was 11 on caustic cresylate shift superintendent. Safety measures in place.
[2018-04-20 08:00] VITALS: BP 136/79
--- NOTE | 2018-04-20 08:50 | NUR ---
CIWA Assessment Pt has been somnolent. He has a flat affect and depressed mood. He is observed with tremors and reports a feeling of fullness in the head, sweating while sleeping, mild nausea, and anxiety. CIWA score 9.
[2018-04-20] MEDS: THIAMINE HCL 100 MG TABLET PO SCH (08:52)
[2018-04-20] MEDS: FOLIC ACID 1 MG TABLET PO SCH (08:52)
[2018-04-20] MEDS: PAROXETINE HCL 20 MG TABLET PO SCH (08:53)
[2018-04-20] MEDS: MULTIVITAMINS,THERAPEUTIC TABLET PO SCH (08:53)
--- NOTE | 2018-04-20 08:55 | NUR ---
PRN Vistaril Pt reports moderate anxiety. Encouraged deep breathing and relaxation. PRN Vistaril administered.
--- NOTE | 2018-04-20 09:55 | NUR ---
PRN Vistaril reassessment PRN Vistaril effective. Pt reports feeling more relaxed. He is resting in bed watching TV.
[2018-04-20 12:30] VITALS: BP 110/72
--- NOTE | 2018-04-20 12:40 | NUR ---
[facility] assessment Pt is in his room having lunch. He presents with a flat affect and depressed mood. He has mild hand tremors, moist skin, and reports anxiety. B/P is 153/89.
--- NOTE | 2018-04-20 12:41 | NUR ---
PRN Clonidine Pt reports feeling anxious with B/P 153/89. PRN Clonidine administered.
--- NOTE | 2018-04-20 14:00 | NUR ---
PRN Clonidine reassessment PRN Clonidine effective. Pt is lying in bed resting with eyes closed. Respirations even and unlabored. Safety measures in place.
[2018-04-20] MEDS ORDERED: PARO20TA7 PO (14:44)
[2018-04-20] MEDS ORDERED: MULT-24 PO (14:44)
[2018-04-20] MEDS ORDERED: CLON0.1T14 PO (14:44)
[2018-04-20 16:30] VITALS: BP 107/53
--- NOTE | 2018-04-20 16:30 | NUR ---
CIWA assessment Pt is lying in bed resting. He has mild tremors, mild anxiety, and restless legs. His affect is flat and mood is depressed. His room is odorous. CIWA score 7.
--- NOTE | 2018-04-20 18:52 | NUR ---
START OF SHIFT NOTE: The patient is an 23 year old patient completed 3 day Ativan taper ordered for alcohol withdrawal, which tolerated well. Withdrawal symptoms will be closely monitoring. The patient scheduled for discharging tomorrow, on 04/21/2018 at 0930. Patient appears worried, easy distracted, with anxious mood, and flat affect. Encourage to expressing his feelings, reassurance provided. The patient noted disheveled, unshaven, with uncombed hair. The most recent CIWA=7at 1600. During day shift patient presented with moderate withdrawal symptoms such as anxiety, agitation, depression, irritability, nervousness, sweating, restlessness, tremors, restlessness and fatigue. PRN Vistaril 25 mg PO administrated for anxiety at 0955 and PRN Clonidine PO administrated for BM=274/89 at 1241, and were effective, per day shift nurse report. The patient remains compliant with treatment plan, medications, and diet regime. Encouraged to attend group activities. Encouraged to intake fluids as tolerated. All needs met. Safety measures: Call light within reach, bed locked in lowest position, padded bed rails up x2. Endorsed by outgoing day shift nurse. Will continue to monitor closely.
--- NOTE | 2018-04-20 18:52 | NUR ---
END OF SHIFT Report provided to material handler 2nd shift nurse. Pt is lying in bed resting. He is a 23 yo male admitted to [facility] on 04/16 for ETOH and Opiate withdrawal with a h/o of using meth. 3 day Valium taper complete and he is scheduled for discharge tomorrow. He had mild tremors and anxiety. PRN Clonidine and Vistaril administered for anxiety and effective. He spent most of the day resting in bed. Last CIWA 7. He drank 1710mL. Safety measures in place.
[2018-04-20 20:00] VITALS: BP 110/55
--- NOTE | 2018-04-20 20:00 | NUR ---
CIWA ASSESSMENT CIWA=9 at 1999. The patient appears sad, worried, with depressive mood and anxious affect. Patient c/o anxiety, agitation, depression, irritability, nervousness, mild nausea sweating, restlessness, and fatigue. He refused any PRN medications niw. The patient states, "Leave me alone, I want to sleep". Encouraged to intake fluids as tolerated. All needs met. Safety measures: Call light within reach, bed locked in lowest position, padded bed rails up x2. Will continue to monitor closely.
--- NOTE | 2018-04-20 20:11 | NUR ---
START OF SHIFT NOTE: The patient is an 23 year old patient completed 3 day Ativan taper ordered for alcohol withdrawal, which tolerated well. Withdrawal symptoms will be closely monitoring. The patient scheduled for discharging tomorrow, on 04/21/2018 at 0930. The patient appears worried, easy distracted, with anxious mood, and flat affect. Encourage to expressing his feelings, reassurance provided. The patient noted disheveled, unshaven, with uncombed hair. The most recent CIWA=7at 1600. During day shift patient presented with moderate withdrawal symptoms such as anxiety, agitation, depression, irritability, nervousness, sweating, restlessness, tremors, restlessness and fatigue. PRN Vistaril 25 mg PO administrated for anxiety at 0955 and PRN Clonidine PO administrated for HF=935/89 at 1241, and were effective, per day shift nurse report. The patient remains compliant with treatment plan, medications, and diet regime. Encouraged to attend group activities. Encouraged to intake fluids as tolerated. All needs met. Safety measures: Call light within reach, bed locked in lowest position, padded bed rails up x2. Endorsed by outgoing day shift nurse. Will continue to monitor closely. Addendum: 04/20/18 at 2014 by KAMALJIT JURADO RN wrong time
[2018-04-21] VITALS: BP 111/59
--- NOTE | 2018-04-21 | NUR ---
CIWA ASSESSMENT CIWA=8 at 0000. Patient experienced anxiety, agitation, nervousness, clammy skin, flashed face. sweating, fine tremors that can be felt non observe, restlessness, fatigue, and yawning. Refused PRN Medications, states, " I want to sleeping". Safe and calm environment provided. Encouraged to intake fluids as tolerated. All needs met. Safety measures: Call light within reach, bed locked in lowest position, padded bed rails up x2. Will continue to monitor closely.
[2018-04-21 04:00] VITALS: BP 120/53
--- NOTE | 2018-04-21 04:00 | NUR ---
CIWA ASSESSMENT CIWA=9 at 0400. Patient appears worried, irritable with anxious mood and flat affect. He presented with Anxiety, agitation, nervousness, tremors that can be felt, sweating ,reports chills, flashing, fatigue, and yawning. Refused PRN Medications. Patient states, "I am feeling good now". Safe and calm environment provided. Encouraged to intake fluids as tolerated. All needs met. Safety measures: Call light within reach, bed locked in lowest position, padded bed rails up x2. Will continue to monitor closely.
--- NOTE | 2018-04-21 07:05 | NUR ---
END OF SHIFT NOTE: 23 year old patient scheduled for discharging today at 0930. He completed 3 day Ativan taper ordered for alcohol withdrawal, which tolerated well. Withdrawal symptoms was closely monitored. Patient is alert and oriented x4, cooperative, with soft clear speech, verbally appropriate. He is ambulatory with steady gait. with anxious mood, and flat affect. Encourage to expressing his feelings, reassurance provided. The patient noted disheveled, unshaven, with uncombed hair. CIWA=9 at 2000, CIWA=8 at 0000. The most recent CIWA=9 at 0400. He presented with anxiety, agitation, nervousness, tremors that can be felt, chills, sweating, flashing, fatigue, and yawning. Encouraged to attend group activities. Encouraged to intake fluids as tolerated. Patient slept for 8 hours, intake 855 ml, output: voided x1. Safe and calm environment provided. All needs met. Safety measures: Call light within reach, bed locked in lowest position, padded bed rails up x2. Endorsed to day shift nurse.
--- NOTE | 2018-04-21 07:30 | NUR ---
Start of Shift Workplace Relations Adviser received report on 23 year old male admitted to [facility] on 04/16/18 for medical management of ETOH and Opiate withdrawals. Pt endorses NKA, full code and regular diet. Pt denies any PMH with no history of seizures. Pt endorses PPH of anxiety and depression. Pt has completed an Ativan taper and is scheduled for discharge this am. Last CIWA 9 per NOC report. No PRN medications administered on NOC, per report. Workplace Relations Adviser encounters pt in pts room resting wit heyes closed, even and unlabored respirations noted. Bed in low position with wheels locked and side rails up x2. Will continue to monitor, support and encourage according to plan of care.
[2018-04-21] MEDS: PAROXETINE HCL 20 MG TABLET PO SCH (08:26)
[2018-04-21] MEDS: THIAMINE HCL 100 MG TABLET PO SCH (08:26)
[2018-04-21] MEDS: MULTIVITAMINS,THERAPEUTIC TABLET PO SCH (08:26)
[2018-04-21] MEDS: FOLIC ACID 1 MG TABLET PO SCH (08:26)
[2018-04-21 08:30] VITALS: BP 134/82
--- NOTE | 2018-04-21 08:30 | NUR ---
CIWA 6 Pt is anxious about discharge and this attempt at continued sobriety. Pt is also restless and has moist skin. Will continue to monitor, support and encourage according to plan of care.
--- NOTE | 2018-04-21 09:30 | NUR ---
Discharge Assessment Pt is A/O x4 and makes needs known. Linear thought process with clear speech pattern. Pt with a normal affect and congruent mood. Denies SI/HI or A/VH. VS stable. Pt is calm and cooperative, anxious about discharge, but prepared and hopeful for the future. Flexographic Press Operator educated on discharge educational material, discharge medications, including name, route, dose, time and indication of all prescribed medications. Flexographic Press Operator educated on importance of continued sobriety and medication compliance. Pt had all belongings returned, with no home medications to return. Pt was escorted to private transportation for transportation to [facility] in [place], [place].
== END 2018-04-21 09:30 | disposition other institution (70) | DRG 895 ==
LOC: SRC 15:20
PROVIDERS: ADMIT Family Medicine Addiction Medicine; ATTEND Family Medicine Addiction Medicine
PROC: HZ2ZZZZ Detoxification Services for Substance Abuse Treatment (ICD-10-PCS; principal; 2018-04-16)
PROC: HZ31ZZZ Individual Counseling for Substance Abuse Treatment, Behavioral (ICD-10-PCS; 2018-04-18)
DX: F11.23 Opioid dependence with withdrawal (principal); F33.1 Major depressive disorder, recurrent, moderate; F10.230 Alcohol dependence with withdrawal, uncomplicated; F15.23 Other stimulant dependence with withdrawal; Y90.9 Presence of alcohol in blood, level not specified; F41.9 Anxiety disorder, unspecified; Z91.19 Patient's noncompliance with other medical treatment and regimen; E87.6 Hypokalemia
CPT/HCPCS: 36415; 80307; 80361; 83690; 83735; 85025; 86580; 86592; 86705; 86803; 87340; 87806; A4663; G0480; J3411; Q0162